=== PATIENT | female | born 1995 | race Caucasian/White ===

== ENCOUNTER 2020-07-31 07:29 | Day surgery (SDC) | payer OTHER ==
[~2020-07-31] VITALS: Ht 160 cm; Wt 78.5 kg
[2020-07-31 09:20] VITALS: BP 104/58
[2020-07-31 14:14] VITALS: BP 108/57
== END 2020-07-31 13:30 ==
LOC: DS 07:29
PROVIDERS: ATTEND Internal Medicine Gastroenterology
DX: K62.5 Hemorrhage of anus and rectum (principal); Z80.0 Family history of malignant neoplasm of digestive organs; Z79.82 Long term (current) use of aspirin
CPT/HCPCS: 45378; J1200; J1610; J2250; J2310; J3010; J3490